=== PATIENT | male | born 1965 | race Caucasian/White ===

== ENCOUNTER 2021-03-13 11:35 | Emergency (ER) | payer OTHER ==
[2021-03-13] MEDS ORDERED: MUCINEX D ER 61 EACH PO (14:46)
[2021-03-13] MEDS ORDERED: MOBIC15 MG PO (14:46)
[2021-03-13] MEDS ORDERED: AMOXICILLIN875 MG PO (14:46)
== END 2021-03-13 15:03 | disposition home or self-care (01) ==
LOC: FER 11:35
DX: J32.9 Chronic sinusitis, unspecified (principal); J40 Bronchitis, not specified as acute or chronic; M19.011 Primary osteoarthritis, right shoulder; I10 Essential (primary) hypertension; Z20.822 Contact with and (suspected) exposure to COVID-19; Z79.899 Other long term (current) drug therapy
CPT/HCPCS: 71046; 87880; U0002

== ENCOUNTER 2022-05-22 09:03 | Day surgery (SDC) | payer OTHER ==
[~2022-05-22] VITALS: Ht 180 cm; Wt 129.0 kg
[~2022-05-22 09:03] MED LIST: AMOXICILLIN875 MG PO; CARAFATE S500 MG/TSP PO; LISINOPRIL-HCT1 EACH PO; LOPRESSOR50 MG PO; MOBIC15 MG PO; MUCINEX D ER 61 EACH PO; TRAMADOL HCL50 MG PO
--- NOTE | 2022-05-22 15:04 | NUR ---
PT WANTS [facility]; I CALLED AND FAXED FACESHEET AND H&P TO [facility] AT [phone] PHONE; (FAX) [phone] WILL FAX ORDERS IN AM ONCE AVAILIABLE PT HAS HAS XAREALTO 10MG X 10 DAYS ZERO COPAY; TO [facility]; [facility]
[2022-05-23 06:29] LABS: BASOPHIL 0.1 % (0-2); EOSINOPHIL 0 % (0-5); HGB 12.1 g/dl (13.2-18.0); LYMPHOCYTE 6.6 % (15-48); MCH 28.5 pg (25.0-31.0); MCHC 32.7 g/dL (32.0-36.0); MCV 87.3 fL (78.0-100.0); MONOCYTE 5.9 % (0-12); NRBC 0; PLT 283 K/uL (150-400); RBC 4.24 M/uL (4.70-6.00); RDW 13.9 % (11.5-14.0); WBC 14.1 K/uL (4.0-10.5)
[2022-05-23 07:05] LABS: BUN/CREAT RATIO (CALC) 14.8 RATIO; CREATININE 1.28 mg/dL (0.67-1.17); POTASSIUM 4.1 mmol/L (3.5-5.1)
[2022-05-23] MEDS ORDERED: FEOSOL325 MG PO (09:04)
[2022-05-23] MEDS ORDERED: XARELTO10 MG PO (09:04)
[2022-05-23] MEDS ORDERED: OXYCODONE-ACET1 EAC1 PO (09:04)
== END 2022-05-23 10:35 | disposition home or self-care (01) ==
LOC: FAS 09:03 → FMS 14:19 → FAS 05-23 10:35
PROVIDERS: Legal Medicine
DX: M17.11 Unilateral primary osteoarthritis, right knee (principal); M21.161 Varus deformity, not elsewhere classified, right knee; G89.18 Other acute postprocedural pain; I10 Essential (primary) hypertension; K21.9 Gastro-esophageal reflux disease without esophagitis
CPT/HCPCS: 36415; 73560; 80048; 85025; 86850; 86900; 86901; 97162; 97165; 97530-GP; C1713; C1776; J0171; J0697; J1100; J1170; J1885; J2250; J2270; J2405; J2704; J2795; J3010; J7120